=== PATIENT | male | born 1985 | race Caucasian/White ===

== ENCOUNTER 2018-12-05 13:46 | Emergency (ER) | payer OTHER, SELFPAY ==
[2018-12-05 13:47] VITALS: BP 128/64; PULSE 85; RESP 15; TEMP 37.4; O2SAT 94; BMI 32.8
--- NOTE | 2018-12-05 13:59 | EKG12_ITS ---
Test Reason : SYNCOPE Blood Pressure : / mmHG Vent. Rate : 082 BPM Atrial Rate : 082 BPM P-R Int : 154 ms QRS Dur : 096 ms QT Int : 344 ms P-R-T Axes : 027 027 014 degrees QTc Int : 401 ms Normal sinus rhythm Minimal voltage criteria for LVH, may be normal variant Borderline ECG Confirmed by IVELISSE CHAIDEZ, SANTA ([id number]), publishing editor RAMONA SALAZAR ([id number]) on 12/07/2018 2:19:21 PM Referred By: KAREN Confirmed By:SANTA OVIEDO MD
--- NOTE | 2018-12-05 14:00 | RAD_ITS ---
STUDY: X-RAY CHEST REASON FOR EXAM: Male, 33 years old. Cough. TECHNIQUE: PA and lateral views of the chest. COMPARISON: June 04, 2015. FINDINGS: Cardiac silhouette unremarkable. Increased bronchovascular markings. Aorta unremarkable. No focal patchy airspace opacities. No pleural effusions. Slightly coarse lung markings. Upper abdomen unremarkable. Osseous structures intact. No pneumothorax. Mild degenerative changes of the spine. RAD/Chest PA and Lateral IMPRESSION: No focal patchy airspace opacities or pleural effusions Mild atelectasis/scarring with coarse lung markings Suspected bronchitis/asthma Electronically Signed: Alexandru Han DO at 15:17 EDT Tel , Service support ,
[2018-12-05 14:01] LABS: Bedside Glucose 118 mg/dL (70-110)
[2018-12-05 14:11] LABS: Absolute Lymphocyte Count 1.74 X10^3/uL (0.83-4.51); Absolute Neutrophil Count 6.8 X10^3/uL (2.0-7.7); Basophil# 0.04 X10^3/uL; Basophil% 0.4 % (0-1); Eosinophil# 0.01 X10^3/uL; Eosinophils% 0.1 % (0-5); Hematocrit 43.3 % (40-54); Hemoglobin 14.9 g/dL (13.0-16.5); Lymphocyte # 1.74 X10^3/ul (4.0); Lymphocyte % 15.5 % (19-41); Mean Corp Hgb Conc 34.4 g/dL (32-36); Mean Corpuscular Hgb 30.8 pg (27.0-32.0); Mean Corpuscular Volume 89.5 fL (80-94); Mean Platelet Vol. 9.7 fl (6.2-12.0); Monocyte# 2.49 X10^3/uL; Monocyte% 22.3 % (0-10); NRBC Flagged by Analyzer 0 % (0-5); Neutrophil # 6.84 X10^3/uL (2.7-7.7); Neutrophil % 61.1 % (47-70); POSITIVE DIFFERENTIAL YES; Platelet Count 260 K/mm3 (150-450); RBC Distribution Width CV 13.7 % (11.6-14.6); RBC Distribution Width SD 44.6 fl (35.1-43.9); Red Blood Count 4.84 M/mm3 (4.6-6.2); White Blood Count 11.2 K/mm3 (4.4-11.0)
[2018-12-05 14:13] LABS: Differential Indicated SCAN CRITERIA MET
[2018-12-05 14:33] LABS: Reactive Lymphocyte 1+
[2018-12-05 14:44] LABS: Anion Gap 7 (5-15); BUN 9 mg/dL (7-18); BUN/Creat Ratio 8.3 RATIO (10-20); Calcium,Total 9.1 mg/dL (8.5-10.1); Chloride 101 mmol/L (98-107); Creatinine, Serum 1.09 mg/dL (0.70-1.30); EST Glomerular Filtration Rate 83 mL/min (>60); Est Glom Filt Rate - Afr Amer 100 mL/min (>60); Estimated Creatinine Clearance 106.79 ml/min; Glucose 112 mg/dL (74-106); Potassium 3.2 mmol/L (3.5-5.1); Sodium Level 136 mmol/L (136-145)
--- NOTE | 2018-12-05 15:10 | ED.DCSUM_ITS ---
- ER Visit Summary Date of Service: 12/05/18 Chief Complaint: Syncope History of Present Illness: The patient is a 33 M who presents after syncopal episode. He states he was driving to work when he did not feel right a started having tunnel vision so he pulled his car over and parked. He states he then griffith d a syncopal episode in his car. EMS was called and by the time he got that he had regained consciousness. He had no chest pain or shortness of breath before. He has been sick the past couple of days with some achiness and some mild temperature elevations. He is also had a slight cough. Physical Examination: Vital signs reviewed. HEENT exam unremarkable. Heart is regular rate and rhythm without murmurs. Lungs are clear to auscultation. Abdomen is soft and nontender. Extremities reveal no edema. Peripheral pulses are equal. Skin exam normal. Neurologic exam normal. Test Results: Laboratory studies are unremarkable except for a potassium of 3.2. EKG is a sinus rhythm rate of [address] changes. His chest x-ray is unremarkable per my interpretation. Emergency Department Course and Treatment: Patient is back to his normal state of health. I do not find any acute causes for his symptoms. Patient will be discharged to follow-up with his PCP who may want to do a Holter monitor. Treatment Plan: [] Disposition: Discharge Impression: Syncope This note was generated with [email or web address] dictation software. It may contain incorrect words, spelling, and punctuation that were not noted in review of the chart prior to signing ED Disposition - Plan for ED Patient: Referrals: Miguel Rivers MD [Primary Care Provider] -
--- NOTE | 2018-12-05 15:28 | ED.DEP ---
ED Disposition - Plan for ED Patient: Disposition: Home or Assisted Living Instructions: SYNCOPE, Unk Cause Referrals: Miguel Rivers MD [Primary Care Provider] -
[2018-12-05 15:40] VITALS: BP 128/76; PULSE 89; RESP 16; O2SAT 94
--- NOTE | 2018-12-05 15:40 | ED.RN ---
IV DC'ED, CATHETER INTACT, SMALL GAUZE DRESSING PLACED. DISCHARGE INSTRUCTIONS GIVEN TO AND REVIEWED WITH PATIENT, PATIENT DENIES QUESTIONS OR CONCERNS AND VOICES UNDERSTANDING OF DISCHARGE INSTRUCTIONS. PT AMBULATES OUT OF ROOM WITHOUT DIFFICULTY.
[2018-12-06 13:08] LABS: Pathologist Review Reviewed
== END 2018-12-05 15:41 | disposition home or self-care (01) ==
PROVIDERS: Emergency Provider Emergency Medicine; Family Provider Family Medicine; PCP Family Medicine
DX: R55 Syncope and collapse (principal); R05 Cough
CPT/HCPCS: 71046; 80048; 82962; 84484; 85025; 93005; 99284; A4216